=== PATIENT | female | born 1950 ===

== ENCOUNTER → 2017-06-30 | Outpatient (CLI) | payer BC ==
--- NOTE | 2017-07-01 12:22 | MM ---
Reason for exam: screening (asymptomatic). Last mammogram was performed 3 years and 1 month ago. History: Patient is postmenopausal. Took estrogen for 7 years 1 month beginning at age 52. Took progesterone for 7 years 1 month beginning at age 52. Physical Findings: A clinical breast exam by your physician is recommended on an annual basis and results should be correlated with mammographic findings. MG Screening Mammo w CAD Bilateral CC and MLO view(s) were taken. Prior study comparison: June 14, 2014, bilateral MG screening mammo w CAD. February 08, 2013, bilateral digital screening mammo w/CAD. There are scattered fibroglandular densities. Global asymmetry in the left upper outer quadrant is unchanged. No significant changes when compared with prior studies. ASSESSMENT: Negative, BI-RAD 1 RECOMMENDATION: Routine screening mammogram of both breasts in 1 year.
== END | disposition home or self-care (01) ==
LOC: RADMAMWWP 16:44
PROVIDERS: ATTEND Internal Medicine Geriatric Medicine
DX: Z12.31 Encounter for screening mammogram for malignant neoplasm of breast (principal)

== ENCOUNTER 2017-11-04 10:09 | Day surgery (SDC) | payer BC, MEDICARE ==
[2017-11-04 11:07] VITALS: TEMP 97.2
[2017-11-04] MEDS ORDERED: LACTATED RINGERS 1,000 ML IV ONE (11:37)
[2017-11-04] MEDS ORDERED: LIDOCAINE 1% 20 ML VIAL (10MG/ML) FOR IV START INTRADERMA ONE (11:38)
[2017-11-04] MEDS ORDERED: LIDOCAINE 1% INJ 10MG/ML (20 ML MDV) ONE (11:57)
[2017-11-04] MEDS ORDERED: PROPOFOL 10 MG/ML 20 ML VIAL IV ONE (11:57)
[2017-11-04 12:01] LABS: Glucose,Whole Blood 128 mg/dL (75-99)
--- NOTE | 2017-11-04 12:07 | P.PCN ---
Date of Procedure: 11/04/17 Procedure(s) Performed: BRIEF HISTORY: Patient is a 67-year-old, pleasant, white female, scheduled for an upper endoscopy as part of evaluation of epigastric pain for the last 2 weeks ' duration. The pain has been progressively getting worse and hence went to the emergency room last week and had a CT of abdomen and pelvis done that showed a large cystic lesion in the liver. She is been taking Aleve on a regular basis for fibromyalgia. She since can for an upper endoscopy to evaluate for upper possible peptic ulcer disease. Procedure performed: EGD with biopsy PREOPERATIVE DIAGNOSIS:Epigastric pain of 2 weeks duration and history of GERD. IV sedation per anesthesia. PROCEDURE: After informed consent was obtained, the patient was brought into the endoscopy unit. IV sedation was administered by Anesthesia under continuous monitoring. Initially the Olympus GIF-140 video endoscope was inserted into the mouth. Esophagus intubated without any difficulty. It was gradually advanced into the stomach and duodenum and carefully examined. The bulb and the second part of the duodenum appeared normal. The scope at this time was withdrawn to the stomach, adequately insufflated with air, and upon careful examination, mucosa of the antrum had scattered erosions consistent with erosive gastritis and biopsies were done from this area. The, body, cardia and the fundus appeared normal. The scope was then withdrawn into the esophagus. The GE junction was located at 39 cm from the incisors There was circumferential erythema of the GE junction consistent with LA grade a reflux esophagitis. The rest of the esophagus appeared normal. There were no erosions or ulcerations seen and the patient tolerated the procedure well. IMPRESSION: 1. Antral erosive gastritis but no evidence of peptic ulcer disease . 2..Circumferential erythema the GE junction consistent with LA grade a reflux esophagitis RECOMMENDATIONS: The findings of this examination were discussed with the patient as well as her family. She was advised to follow with the biopsy results. She will continue on Prilosec 20 mg twice daily half hour before breakfast and dinnertime and follow reflux measures. She'll be seen in the office in 10 days.
[2017-11-04 12:11] VITALS: RESP 16
[2017-11-04 12:40] VITALS: BP 145/72; PULSE 63
== END 2017-11-04 12:58 | disposition home or self-care (01) ==
LOC: ORWHC2ENDO 10:09
PROVIDERS: ATTEND Internal Medicine Gastroenterology
DX: K21.0 Gastro-esophageal reflux disease with esophagitis (principal); K29.50 Unspecified chronic gastritis without bleeding; M79.7 Fibromyalgia; I10 Essential (primary) hypertension; E78.5 Hyperlipidemia, unspecified; E11.9 Type 2 diabetes mellitus without complications; Z79.84 Long term (current) use of oral hypoglycemic drugs; Z79.1 Long term (current) use of non-steroidal anti-inflammatories (NSAID); Z79.891 Long term (current) use of opiate analgesic; Z79.899 Other long term (current) drug therapy; Z88.5 Allergy status to narcotic agent; Z88.0 Allergy status to penicillin
CPT/HCPCS: 88305; 43239; J2001; J2704

== ENCOUNTER → 2022-09-05 | Outpatient (CLI) | payer BC, MEDICARE ==
--- NOTE | 2022-09-05 12:02 | CA ---
Stress Echo Report Fadumo Allred Age: 72 Gender: F : 1950 Exam Date: 09/05/2022 10:06 Exam Location: [facility] Ht (in): 62 Wt (lb): 165 Ordering Physician: Omid Phelps MD Referring Physician: Omid Phelps MD Stoker Mechanic: Nicol Cummings RDCS Technologist Procedure CPT: Indication: R06.02 SHORTNESS OF BREATH ICD-9 Codes: Rhythm: Patient History: Cardiac Medications: METFORMIN,,,,,, XANAX,,,,,, HYDROCODONE,,,,,, LIPITOR,,,,,, COZAR,,,,,, LEXAPRO,,,,, Medications in past 24 hours: Contrast: Stress Results Protocol: Modified David Total dose(mL): Exercise Duration (min:sec): 4:[address] Depression (mm): Angina Score: Peralta Score: METS: 5.6 Resting HR: 65 Resting BP: 138 / 65 Peak HR: 122 Peak BP: 188 / 93 Max Predicted HR: 147 83 % Max Predicted HR Target HR: 125 Double Product: [id number] Stress Summary: BP Response: Reason for Termination: Dyspnea,Fatigue, DIRECTED PER SENIOR DATABASE PROGRAMMER Cardiac Symptoms: DIFFICULTY IN BREATHING,FATIGUE ECG Analysis Resting ECG: Stress ECG: Arrhythmia: Echo Analysis Resting Echo: Peak Echo Analysis: MEASUREMENTS (Male/Female) Normal Values CONCLUSIONS Normal EKG at baseline normal heart rate and blood pressure at baseline No ECG or echocardiographic evidence for ischemia Low exercise capacity, 400 is 18 seconds on a David protocol Patient complained of fatigue Dr. Festus Cowan MD (Electronically Signed) Final Date: 05 September 2022 12:01
== END | disposition home or self-care (01) ==
LOC: RADNMMAIN 09:41
PROVIDERS: ATTEND Internal Medicine Geriatric Medicine
DX: R06.02 Shortness of breath (principal)
CPT/HCPCS: 93351

== ENCOUNTER → 2024-08-30 | Outpatient (CLI) | payer MEDICARE, OTHER ==
--- NOTE | 2024-08-30 18:59 | MR ---
EXAMINATION TYPE: MR lumbar spine wo/w con DATE OF EXAM: 08/30/2024 6:46 PM COMPARISON: None. CLINICAL INDICATION: Female, 74 years old with history of M48.07 SPINAL STENOSIS, LUMBOSACRAL REGION, chronic myelomalacia x4 years, low back pain that radiates down left leg, history of surgery. TECHNIQUE: Multiplanar, multisequence images of the lumbar spine were acquired. IV Contrast: 7 mL Gadobutrol (None, if empty) FINDINGS: Cord ends at the T12-L1 L5-S1: Disc spacer is present L5-S1. Mild metallic susceptibility artifact is evident. Some minimal r esidual disc bulge may be present. No AP spinal canal stenosis is present. Facet hypertrophy is prese nt. Moderate right foraminal narrowing is present. L4-L5: No focal disc herniation or significant disc bulge. There is some disc uncovering from a mild grade 1 spondylolisthesis of L4 anterior to L5. No spinal canal stenosis. Facet hypertrophy is pres ent with moderate bilateral foraminal narrowing L3-L4: No focal disc herniation or significant disc bulge. No spinal canal stenosis. Mild right fora marlyn narrowing is present. L2-L3: There is loss of disc height at this level. Disc bulge has mild anterior thecal sac flattening . No AP spinal canal stenosis is present. Mild facet hypertrophy is present. Moderate right and moder ate to severe left foraminal stenosis is present. Correlate with radicular symptoms. L1-L2: Mild disc bulge has anterior thecal sac flattening. Some mild left paracentral focal bulge is present with more moderate anterior thecal sac compression. No AP spinal canal stenosis is present. N eural foramen are patent T12-L1: No focal disc herniation or significant disc bulge. No spinal canal stenosis. Neural forame n are patent. IMPRESSION: 1. Severe left foraminal stenosis L2-3. Correlate with radicular symptoms. 2. Grade 1 spondylolisthesis of L4 anterior on L5. 3. Minimal to mild disc bulging present discussed above. No spinal canal stenosis is present. [facility], Workstation: [email or web address], 08/30/2024 6:57 PM
== END | disposition home or self-care (01) ==
LOC: RADMRIMAIN 17:39
PROVIDERS: ATTEND Internal Medicine Geriatric Medicine
DX: M48.07 Spinal stenosis, lumbosacral region (principal); M99.73 Connective tissue and disc stenosis of intervertebral foramina of lumbar region; M43.16 Spondylolisthesis, lumbar region
CPT/HCPCS: 72158; A9585

== ENCOUNTER 2025-03-05 18:22 | Emergency (ER) | payer MEDICARE, OTHER ==
[2025-03-05 18:28] LABS: Glucose,Whole Blood 182 mg/dL (70-110)
[2025-03-05 18:29] VITALS: TEMP 98.1
[2025-03-05] MEDS: HYDROmorphone 0.5 MG/0.5 ML SYRINGE IM STA (18:43)
--- NOTE | 2025-03-05 18:49 | ED ---
Fall HPI - General Chief Complaint: Fall Stated Complaint: Fall/Head Injury Time Seen by Provider: 03/05/25 18:32 Source: patient, family, RN notes reviewed Mode of arrival: wheelchair - History of Present Illness Initial Comments: 74-year-old female presents emergency department with her son after a fall. Patient states that she was walking her house when she tripped over a dog crate causing her to fall backwards. Patient states that she hit the back of her head however did not lose consciousness. Patient is currently complaining of bilateral anterior rib pain, bilateral wrist pain, headache. She is denying visual disturbances. Denies blood thinner use. - Related Data Home Medications Medication Instructions Recorded Confirmed Atorvastatin [Lipitor] 10 mg PO DAILY 11/04/17 11/04/17 Cyclobenzaprine [Flexeril] 5 mg PO HS 11/04/17 11/04/17 Hydrocodone/Acetaminophen 1 tab PO PRN 11/04/17 [Hydrocodon-Acetaminophen 5-325] Meclizine [Antivert] 1 tab PO PRN 11/04/17 Naproxen [Naprosyn] 220 mg PO PRN 11/04/17 Omeprazole [PriLOSEC] 20 mg PO AC-BID 11/04/17 11/04/17 amLODIPine [Norvasc] 5 mg PO DAILY 11/04/17 11/04/17 lisinopriL [Zestril] 1 tab PO DAILY 11/04/17 11/04/17 metFORMIN HCL [Glucophage] 500 mg PO BID 11/04/17 11/04/17 Allergies Allergy/AdvReac Type Severity Reaction Status Date / Time codeine Allergy Dyspnea Verified 03/05/25 18:28 Penicillins Allergy Rash/Hives Verified 03/05/25 18:28 Review of Systems ROS Statement: Those systems with pertinent positive or pertinent negative responses have been documented in the HPI. ROS Other: All systems not noted in ROS Statement are negative. Past Medical History Past Medical History: Diabetes Mellitus, Fibromyalgia History of Any Multi-Drug Resistant Organisms: None Reported Past Surgical History: No Surgical Hx Reported Past Psychological History: No Psychological Hx Reported General Exam Limitations: no limitations General appearance: alert, in no apparent distress Head exam: Present: atraumatic, normocephalic, normal inspection Eye exam: Present: normal appearance, PERRL, EOMI. Absent: scleral icterus, conjunctival injection, periorbital swelling ENT exam: Present: normal exam, mucous membranes moist Neck exam: Present: normal inspection. Absent: tenderness, meningismus, lymphadenopathy Respiratory exam: Present: normal lung sounds bilaterally, chest wall tenderness. Absent: respiratory distress, wheezes, rales, rhonchi, stridor Cardiovascular Exam: Present: regular rate, normal rhythm, normal heart sounds. Absent: systolic murmur, diastolic murmur, rubs, gallop, clicks GI/Abdominal exam: Present: soft, normal bowel sounds. Absent: distended, tend erness, guarding, rebound, rigid Right Hand Wrist exam: Present: full ROM, tenderness (anatomical snuffbox). Absent: swelling, abrasion, ecchymosis, deformity Neuro motor exam: Present: wrist extension intact, thumb opposition intact Vascular: Present: radial pulse (2+). Absent: vascular compromise Left Hand Wrist exam: Present: tenderness, ecchymosis Neuro motor exam: Present: wrist extension intact, thumb opposition intact Vascular: Present: radial pulse (2+). Absent: vascular compromise Neurological exam: Present: alert, oriented X3, CN II-XII intact Course Vital Signs 03/05/25 03/05/25 18:24 21:05 Temperature 98.1 F 98.1 F Pulse Rate 69 77 Respiratory 20 16 Rate Blood Pressure 149/80 110/64 O2 Sat by Pulse 100 98 Oximetry Procedures - Orthopedic Splinting/Casting Injury #1 Side: right Upper Extremity Injury Location: short arm Upper Extremity Immobilizer: thumb spica, Miguel wrap, synthetic pre-padded splint Medical Decision Making - Medical Decision Making Was pt. sent in by a medical professional or institution (, PA, ANALYSIS EVALUATOR, urgent care, hospital, or long-term...) When possible be specific @ -No Did you speak to anyone other than the patient for history (EMS, parent, family, police, friend...)? What history was obtained from this source @ -Son at bedside states the patient did not lose consciousness at the time of the fall Did you review nursing and triage notes (agree or disagree)? Why? @ -I reviewed and agree with nursing and triage notes Were old charts reviewed (outside hosp., previous admission, EMS record, old EKG, old radiological studies, urgent care reports/EKG's, long-term records)? Report findings @ -No old charts were reviewed Differential Diagnosis (chest pain, altered mental status, abdominal pain women, abdominal pain men, vaginal bleeding, weakness, fever, dyspnea, syncope, headache, dizziness, GI bleed, back pain, seizure, CVA, palpatations, mental health, musculoskeletal)? @ -Wrist fracture, wrist sprain, concussion, intracranial hemorrhage, cervical spine fracture, rib fracture, pneumothorax, this list not all inclusive EKG interpreted by me (3pts min.). @ -none X-rays interpreted by me (1pt min.). @ -X-ray of bilateral wrist reveals no acute osseous abnormality CT interpreted by me (1pt min.). @ -CT of the chest without contrast no acute pulmonary process with no rib fractures identified CT of the brain and C-spine without contrast no acute intracranial process, there is foraminal right narrowing at C3-C4 through C5-C6 U/S interpreted by me (1pt. min.). @ -None done What testing was considered but not performed or refused? (CT, X-rays, U/S, labs)? Why? @ -None What meds were considered but not given or refused? Why? @ -None Did you discuss the management of the patient with other professionals (professionals i.e. , PA, ANALYSIS EVALUATOR, lab, RT, psych nurse, social service agency director, drop wire aligner, teacher, uniform patrol police officer, case hardener)? Give summary @ -No Was smoking cessation discussed for >3mins.? @ -No Was critical care preformed (if so, how long)? @ -No Were there social determinants of health that impacted care today? How? (Homelessness, low income, unemployed, alcoholism, drug addiction, transportation, low edu. Level, literacy, decrease access to med. care, [facility], rehab)? @ -No Was there de-escalation of care discussed even if they declined (Discuss DNR or withdrawal of care, Hospice)? DNR status @ -No What co-morbidities impacted this encounter? (DM, HTN, Smoking, COPD, CAD, Cancer, CVA, ARF, Chemo, Hep., AIDS, mental health diagnosis, sleep apnea, morbid obesity)? @ -None Was patient admitted / discharged? Hospital course, mention meds given and route, prescriptions, significant lab abnormalities, going to OR and other pertinent info. @ -Discharge. 74-year female presenting with son for concerns of pain after a fall. Overall patient is well-appearing and is in no signs distress. There are no active lacerations. There is ecchymosis noted over the anterior left hand, bilateral upper extremities are neurovascularly intact. There is no obvious deformity of the chest. Patient is provided with pain medication. Imaging of the brain, C-spine, chest, bilateral wrists unremarkable. With concern for anatomical snuffbox tenderness on examination patient is placed in a radial thumb spica splint on the right hand and is instructed follow-up with research support specialist. Case discussed with Dr. Mahajan Undiagnosed new problem with uncertain prognosis? @ -No Drug Therapy requiring intensive monitoring for toxicity (Heparin, Nitro, Insulin, Cardizem)? @ -No Were any procedures done? @ -Orthopedic splinting Diagnosis/symptom? @ -Anatomical snuffbox tenderness, chest pain after fall, headache Acute, or Chronic, or Acute on Chronic? @ -Acute Uncomplicated (without systemic symptoms) or Complicated (systemic symptoms)? @ -Uncomplicated Side effects of treatment? @ -No Exacerbation, Progression, or Severe Exacerbation? @ -No Poses a threat to life or bodily function? How? (Chest pain, [place], MT, pneumonia, PE, COPD, DKA, ARF, appy, cholecystitis, CVA, Diverticulitis, Homicidal, Suicidal, threat to staff... and all critical care pts) @ -No - Lab Data Lab Results 03/05/25 Range/Units 18:26 POC Glucose (mg/dL) 182 H (70-110) mg/dL POC Glu Sawmill Worker ID Hayley Valdez Disposition Clinical Impression: Fall, Wrist sprain, Tenderness of anatomical snuffbox, Laceration Disposition: HOME SELF-CARE Condition: Stable Instructions (If sedation given, give patient instructions): Fall Prevention for Older Adults (ED), Skin Adhesive Care (ED) Additional Instructions: Please return to the Emergency Department if symptoms worsen or any other concerns. Please keep splint in place until follow-up with research support specialist. Is patient prescribed a controlled substance at d/c from ED?: No Referrals: Omid Phelps MD [Primary Care Provider] - 1-2 days Dami Ornelas DO [Doctor of Osteopathic Medicine] - 1-2 days Time of Disposition: 20:16
--- NOTE | 2025-03-05 19:19 | CT ---
EXAMINATION TYPE: CT brain esine wo con DATE OF EXAM: 03/05/2025 7:02 PM COMPARISON: None. CLINICAL INDICATION: Female, 74 years old with history of pain, Fall with laceration to right eye bro w, early onset dementia history, pain TECHNIQUE: CT of the brain is performed utilizing 3 mm thick sections through the posterior fossa and 3 mm thick sections through the remaining calvarium. Study is performed within 24 hours of arrival to the hospital. Contrast used: mL of , (none if empty) CT DLP: combined 1532.8 mGycm, Automated exposure control for dose reduction was used. FINDINGS: No abnormal hyperdensity is present to suggest an acute intracranial hemorrhage. No mass lesion is evident. No acute infarcts are evident. Ventricles and sulci are appropriate for the patient age. Paranasal sinuses and mastoid air cells within the [id number] are clear. IMPRESSIONS: 1. No acute intracranial process. Follow-up MRI can be performed as clinically indicated. CT cervical spine. COMPARISON: None TECHNIQUE: CT of the cervical spine is performed in the axial plane at 2 mm thick sections. Reconstr ucted images in the coronal, and sagittal plane are reviewed on the computer. FINDINGS: No acute fractures are evident. Vertebral body alignment is normal. There is anterior vertebral body fusion C3-C6. Disc spacers are utilized. Disc heights are preserved. Vertebral body heights are preserved. No spinal canal stenosis is evident. Uncovertebral joint hypertrophy contributing to foraminal stenosis. This includes C3-4 through C5-6 s evere stenosis from uncovertebral joint. Milder foraminal narrowing present. IMPRESSION: 1. Postsurgical changes. 2. Foraminal narrowing greatest C3-4 through C5-6. Correlate with radicular symptoms. 3. No acute osseous abnormality. [facility], , 03/05/2025 7:16 PM
--- NOTE | 2025-03-05 19:40 | CT ---
EXAMINATION TYPE: CT chest wo con DATE OF EXAM: 03/05/2025 7:04 PM COMPARISON: None. CLINICAL INDICATION: Female, 74 years old with history of fall, pain, evaluate ribs, fall, sternal pa in TECHNIQUE: Axial images were obtained at 5 mm thick sections. Reconstructed images are reviewed on [employer] computer in the coronal plane. Contrast used: mL of , (none if empty) Oral contrast used: (none if empty) CT DLP: combined 1532.8 mGycm, Automated exposure control for dose reduction was used. FINDINGS: Portion of the thyroid visualized is normal. No suspicious lung nodules or focal infiltrates are present. No pneumothorax is evident. No enlarged mediastinal or hilar adenopathy is evident. The ascending aorta diameter at the level o f the main pulmonary artery is 3.3 cm. The main pulmonary artery diameter at the bifurcation is 2.2 cm. No significant coronary artery calcifications. Limited CT sections are obtained through the upper abdomen. Large cysts within the right lobe liver. There may be a large cyst within the left lobe liver. Osseous structures are reviewed. There is a anterior cervical fusion present. No displaced rib fractu res are evident. Sternal appears intact. Vertebral body heights are preserved. Some anterior vertebra l body spurring is the lower thoracic spine IMPRESSION: 1. No acute pulmonary process. 2. Hepatic cysts. 3. No acute fractures identified. Follow-up can be performed as clinically indicated [facility], , 03/05/2025 7:38 PM
--- NOTE | 2025-03-05 19:56 | XR ---
EXAMINATION TYPE: XR wrist complete BILATERAL DATE OF EXAM: 03/05/2025 7:13 PM COMPARISON: None. CLINICAL INDICATION: Female, 74 years old with history of fall, pain, pain following fall TECHNIQUE: 4 view(s) obtained bilateral wrists. FINDINGS: No acute fractures or dislocations evident. Joint spaces are preserved. Follow up exams can be perfor med 7-10 days from acute trauma for continued pain. There is pain at the anatomic snuff box, nuclear medicine bone scan would be recommended for addition al evaluation. IMPRESSION: 1. No acute osseous abnormality bilateral wrists. [facility], , 03/05/2025 7:53 PM
[2025-03-05] MEDS: ONDANSETRON ODT 4 MG TAB PO STA (20:25)
[2025-03-05] MEDS: ACET/COD 300 MG/30 MG STARTER PACK 6 TAB BTL PO STA (20:54)
[2025-03-05] MEDS: TOPICAL SKIN ADHESIVE 1 EACH AMP TOPICAL ONE (20:55)
[2025-03-05 21:07] VITALS: BP 110/64; PULSE 77; RESP 16
== END 2025-03-05 21:07 | disposition home or self-care (01) ==
LOC: EC 18:22
DX: S63.502A Unspecified sprain of left wrist, initial encounter (principal); S63.501A Unspecified sprain of right wrist, initial encounter; Z88.0 Allergy status to penicillin; Z88.5 Allergy status to narcotic agent; W01.0XXA Fall on same level from slipping, tripping and stumbling without subsequent striking against object, initial encounter; Y92.009 Unspecified place in unspecified non-institutional (private) residence as the place of occurrence of the external cause; Y93.01 Activity, walking, marching and hiking
CPT/HCPCS: 99284 ×2; 96372 ×2; 29125 ×2; 36415; 73110; 72125; 70450; 71250; J1171